=== PATIENT | male | born 1995 | race African-American/Black ===

== ENCOUNTER 2017-03-31 19:15 | Emergency (ER) | payer OTHER, BC ==
[2017-03-31 19:17] VITALS: BP 144/90; PULSE 103; RESP 16; TEMP 98.1; O2SAT 97
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
[2017-03-31] MEDS ORDERED: IBUPROFEN 600 MG TAB PO ONE (20:45)
[2017-03-31] MEDS ORDERED: ACETAMINOPHEN/HYDROcodone 325 MG/5 MG TAB PO ONE (21:00)
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
[2017-03-31] MEDS ORDERED: NORC5TAB PO (21:02)
[2017-03-31] MEDS ORDERED: DICL75TA PO (21:02)
[2017-03-31 21:31] VITALS: BP 112/87
[2017-03-31 22:10] VITALS: RESP 16
== END 2017-03-31 22:41 | disposition home or self-care (01) ==
LOC: NEPK 19:15
DX: S92.331A Displaced fracture of third metatarsal bone, right foot, initial encounter for closed fracture (principal); S92.341A Displaced fracture of fourth metatarsal bone, right foot, initial encounter for closed fracture; V03.10XA Pedestrian on foot injured in collision with car, pick-up truck or van in traffic accident, initial encounter; Y93.01 Activity, walking, marching and hiking; Y92.410 Unspecified street and highway as the place of occurrence of the external cause
CPT/HCPCS: 29515; 73630; 99284; E0113